=== PATIENT | male | born 1995 | race Two or more races ===

== ENCOUNTER → 2017-06-15 | Outpatient (CLI) | payer BC ==
--- NOTE | 2017-06-16 00:19 | EKG ---
Date Performed: 06/15/2017 Time Performed: 09:01:48 PTAGE: 22 years EKG: Sinus rhythm POSSIBLE RIGHT VENTRICULAR CONDUCTION DELAY ST ELEVATION, PROBABLY EARLY REPOLARIZATION BORDERLINE E CG NO PREVIOUS TRACING DOCTOR: Erik Hook Interpretating Date/Time 06/16/2017 00:18:17
== END ==
LOC: HCAV 08:41
PROVIDERS: ATTEND Family Medicine
DX: R42 Dizziness and giddiness (principal); R94.31 Abnormal electrocardiogram [ECG] [EKG]; Z84.89 Family history of other specified conditions
CPT/HCPCS: 93005